=== PATIENT | male | born 1980 | race Caucasian/White ===

== ENCOUNTER → 2017-08-05 | Outpatient (REF) | payer OTHER ==
[2017-08-05 13:18] LABS: BASO # 0.1 10^3/uL (0.0-0.2); BASO % 0.6 % (0.0-1.0); EOS # 0.2 10^3/uL (0.0-0.50); EOS % 1.9 % (0.0-3.0); HEMATOCRIT 40.7 % (42.0-52.0); IMMATURE GRANULOCYTE # 0.1 10^3/uL (0-0); IMMATURE GRANULOCYTE % 0.6 % (0-3.0); LYMPH # 2.9 10^3/uL (1.5-4.5); LYMPH % 26.7 % (24.0-44.0); MEAN CORPUSCULAR HEMOGLOBIN 27.3 pg (27.0-33.0); MEAN CORPUSCULAR HGB CONC 31.9 g/dl (32.0-36.5); MEAN CORPUSCULAR VOLUME 85.5 fl (80.0-96.0); MONO # 0.7 10^3/uL (0.0-0.8); MONO % 6.3 % (0.0-5.0); NEUTROPHILS % 63.9 % (36.0-66.0); PLATELET COUNT, AUTOMATED 303 10^3/uL (150-450); RED BLOOD COUNT 4.76 10^6/uL (4.30-6.10); RED CELL DISTRIBUTION WIDTH 14.1 % (11.5-14.5); WHITE BLOOD COUNT 10.9 10^3/uL (4.0-10.0)
[2017-08-05 13:19] LABS: ESTIMATED AVERAGE GLUCOSE 206 MG/DL (60-110); HEMOGLOBIN A1c 8.8 %
[2017-08-05 13:24] LABS: CPK CREATINE PHOSPHOKINASE 61 U/L (39-308)
[2017-08-05 13:26] LABS: ALBUMIN 3.3 GM/DL (3.2-5.2); ALBUMIN/GLOBULIN RATIO 1.03 (1.00-1.93); ALKALINE PHOSPHATASE 57 U/L (45-117); ALT/SGPT 116 U/L (12-78); ANION GAP 10 MEQ/L (8-16); AST/SGOT 64 U/L (7-37); BILIRUBIN,TOTAL 0.5 MG/DL (0.2-1.0); BLOOD UREA NITROGEN 12 MG/DL (7-18); CARBON DIOXIDE LEVEL 28 MEQ/L (21-32); CHLORIDE LEVEL 102 MEQ/L (98-107); CHOLESTEROL LEVEL 143 MG/DL (<200); CHOLESTEROL RISK RATIO 3.864 (<5); GLOMERULAR FILTRATION RATE > 60.0 (>60); GLUCOSE, FASTING 165 MG/DL (70-100); HDL CHOLESTEROL 37 MG/DL (>40); LDL CHOLESTEROL 61.8 MG/DL (<100); NON-HDL-C 106 MG/DL; POTASSIUM SERUM 4.1 MEQ/L (3.5-5.1); SODIUM LEVEL 140 MEQ/L (136-145); TOTAL PROTEIN 6.5 GM/DL (6.4-8.2); TRIGLYCERIDES LEVEL 221 MG/DL (<150)
== END ==
LOC: M LABDRWAD 12:32
DX: E11.65 Type 2 diabetes mellitus with hyperglycemia (principal); E66.01 Morbid (severe) obesity due to excess calories; I10 Essential (primary) hypertension

== ENCOUNTER → 2018-09-23 | Outpatient (REF) | payer OTHER ==
[2018-09-23 13:23] LABS: ALBUMIN 3.9 GM/DL (3.2-5.2); ALT/SGPT 172 U/L (12-78); BILIRUBIN,DIRECT 0.2 MG/DL (0.0-0.2); BILIRUBIN,TOTAL 0.6 MG/DL (0.2-1.0); TOTAL PROTEIN 7.7 GM/DL (6.4-8.2)
[2018-09-23 13:42] LABS: HEPATITIS B SURFACE ANTIGEN NEGATIVE (NEGATIVE)
[2018-09-23 14:08] LABS: HEPATITIS C VIRUS ABY INDEX 0.1 INDEX (<0.8)
[2018-09-23 14:09] LABS: HEPATITIS B CORE ANTIBODY IGM NEGATIVE (NEGATIVE)
[2018-09-23 14:12] LABS: HEPATITIS A ANTIBODY IGM NEGATIVE (NEGATIVE)
== END ==
LOC: M LABDRWAD 12:18
PROVIDERS: ATTEND Nurse Practitioner Family
DX: R74.8 Abnormal levels of other serum enzymes (principal)

== ENCOUNTER → 2018-11-25 | Outpatient (CLI) | payer OTHER ==
--- NOTE | 2018-11-25 14:55 | REP ---
Bilateral lower extremity arterial duplex ultrasound: Right lower extremity: Brachial peak systole: 130 mmHg. Dorsalis pedis peak systole: 128 mmHg. DEPARTMENTAL SECRETARY peak systole: 142 mmHg. HERNESTO: 1.09 Peak Systolic Phasicity Velocity [employer] the 103 triphasic Profunda 71.3 triphasic SFA prox 89.4 triphasic SFA mid 76.4 triphasic SFA dist 57.2 triphasic Pop 48.5 triphasic DIEGO prox 42.9 triphasic Tib/P tr 65.9 triphasic DEPARTMENTAL SECRETARY pr 80.1 triphasic DEPARTMENTAL SECRETARY dst 52.2 triphasic DIEGO dst 70.8 triphasic Left lower extremity: Brachial peak systole: 130 mmHg. Dorsalis pedis peak systole: 120 mmHg. DEPARTMENTAL SECRETARY peak systole: 138 mmHg. HERNESTO: 106. 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 There are triphasic waveforms bilaterally. No stenoses are identified on the right or the left. Electronically Signed by Guilherme Mack MD 11/25/2018 02:46 P
== END ==
LOC: M RAD 12:10
PROVIDERS: ATTEND Podiatrist Foot & Ankle Surgery
DX: I73.9 Peripheral vascular disease, unspecified (principal)

== ENCOUNTER → 2019-03-03 | Outpatient (REF) | payer OTHER ==
[2019-03-03 13:18] LABS: BASO # 0.1 10^3/uL (0.0-0.2); BASO % 0.9 % (0.0-1.0); EOS # 0.1 10^3/uL (0.0-0.5); EOS % 1.1 % (0.0-3.0); HEMATOCRIT 46.7 % (42.0-52.0); HEMOGLOBIN 14.5 g/dl (13.5-17.5); LYMPH # 2.9 10^3/uL (1.5-5.0); LYMPH % 28.6 % (24.0-44.0); MEAN CORPUSCULAR HEMOGLOBIN 26.4 pg (27.0-33.0); MEAN CORPUSCULAR VOLUME 85.1 fl (80.0-96.0); MONO # 0.9 10^3/uL (0.0-0.8); MONO % 8.4 % (0.0-5.0); NEUTROPHILS # 6.2 10^3/uL (1.5-8.5); NEUTROPHILS % 60.2 % (36.0-66.0); PLATELET COUNT, AUTOMATED 363 10^3/uL (150-450); RED BLOOD COUNT 5.49 10^6/uL (4.30-6.10); WHITE BLOOD COUNT 10.3 10^3/uL (4.0-10.0)
[2019-03-03 13:47] LABS: ALBUMIN 3.8 GM/DL (3.2-5.2); ALT/SGPT 84 U/L (12-78); BILIRUBIN,TOTAL 0.4 MG/DL (0.2-1.0); BLOOD UREA NITROGEN 18 MG/DL (7-18); CALCIUM LEVEL 9.5 MG/DL (8.5-10.1); CARBON DIOXIDE LEVEL 31 MEQ/L (21-32); CHLORIDE LEVEL 98 MEQ/L (98-107); CHOLESTEROL LEVEL 211 MG/DL (<200); CHOLESTEROL RISK RATIO 6.393 (<5); CREATININE FOR GFR 0.96 MG/DL (0.70-1.30); GLOMERULAR FILTRATION RATE > 60.0 (>60); GLUCOSE, FASTING 267 MG/DL (70-100); HDL CHOLESTEROL 33 MG/DL (>40); NON-HDL-C 178 MG/DL; POTASSIUM SERUM 3.7 MEQ/L (3.5-5.1); SODIUM LEVEL 139 MEQ/L (136-145); TOTAL PROTEIN 7.6 GM/DL (6.4-8.2); TRIGLYCERIDES LEVEL 415 MG/DL (<150)
== END ==
LOC: M LABDRWAD 12:36
PROVIDERS: ATTEND Nurse Practitioner Family
DX: E11.65 Type 2 diabetes mellitus with hyperglycemia (principal); K76.0 Fatty (change of) liver, not elsewhere classified; I51.7 Cardiomegaly; R74.8 Abnormal levels of other serum enzymes

== ENCOUNTER → 2019-03-03 | Outpatient (REF) | payer OTHER ==
[2019-03-03 13:49] LABS: HEMOGLOBIN A1c 8.8 %
[2019-03-05 00:07] LABS: CK 1 (BB) 0 % (0); CK 2 (MB) 0 % (0-3); CK 3 (MM) 100 % (97-100); CK MACRO I PERCENT 0 % (Not Observed); CK MACRO II PERCENT 0 % (Not Observed); CK TOTAL 60 U/L (24-204)
== END ==
LOC: M LABDRWAD 12:38
PROVIDERS: ATTEND Physician Assistant Medical
DX: R94.31 Abnormal electrocardiogram [ECG] [EKG] (principal); E11.69 Type 2 diabetes mellitus with other specified complication; R07.9 Chest pain, unspecified; R74.8 Abnormal levels of other serum enzymes; I10 Essential (primary) hypertension; E78.2 Mixed hyperlipidemia; E66.01 Morbid (severe) obesity due to excess calories

== ENCOUNTER → 2019-08-18 | Outpatient (REF) | payer OTHER ==
[2019-08-18 13:19] LABS: BASO # 0.1 10^3/uL (0.0-0.2); BASO % 0.6 % (0.0-1.0); EOS # 0.2 10^3/uL (0.0-0.5); EOS % 1.3 % (0.0-3.0); HEMATOCRIT 48.2 % (42.0-52.0); HEMOGLOBIN 15.3 g/dl (13.5-17.5); LYMPH # 3.5 10^3/uL (1.5-5.0); LYMPH % 29.5 % (24.0-44.0); MEAN CORPUSCULAR HEMOGLOBIN 26.9 pg (27.0-33.0); MEAN CORPUSCULAR HGB CONC 31.7 g/dl (32.0-36.5); MEAN CORPUSCULAR VOLUME 84.9 fl (80.0-96.0); MONO % 8.5 % (0.0-5.0); NEUTROPHILS # 6.9 10^3/uL (1.5-8.5); NEUTROPHILS % 59.3 % (36.0-66.0); PLATELET COUNT, AUTOMATED 420 10^3/uL (150-450); RED BLOOD COUNT 5.68 10^6/uL (4.30-6.10); WHITE BLOOD COUNT 11.7 10^3/uL (4.0-10.0)
[2019-08-18 13:26] LABS: ALBUMIN 3.6 GM/DL (3.2-5.2); ALT/SGPT 88 U/L (12-78); BILIRUBIN,TOTAL 0.5 MG/DL (0.2-1.0); BLOOD UREA NITROGEN 12 MG/DL (7-18); CALCIUM LEVEL 9.5 MG/DL (8.5-10.1); CARBON DIOXIDE LEVEL 31 MEQ/L (21-32); CHLORIDE LEVEL 101 MEQ/L (98-107); CHOLESTEROL LEVEL 148 MG/DL (<200); CHOLESTEROL RISK RATIO 4.774 (<5); CREATININE FOR GFR 0.93 MG/DL (0.70-1.30); GLOMERULAR FILTRATION RATE > 60.0 (>60); GLUCOSE, FASTING 256 MG/DL (70-100); HDL CHOLESTEROL 31 MG/DL (>40); LDL CHOLESTEROL 56 MG/DL (<100); NON-HDL-C 117 MG/DL; POTASSIUM SERUM 4.2 MEQ/L (3.5-5.1); SODIUM LEVEL 139 MEQ/L (136-145); TOTAL PROTEIN 7.4 GM/DL (6.4-8.2); TRIGLYCERIDES LEVEL 307 MG/DL (<150)
== END ==
LOC: M LABDRWAD 12:16
PROVIDERS: ATTEND Nurse Practitioner Family
DX: E11.65 Type 2 diabetes mellitus with hyperglycemia (principal); I10 Essential (primary) hypertension; E78.2 Mixed hyperlipidemia

== ENCOUNTER 2020-01-25 14:19 | Emergency (ER) | payer OTHER ==
[~2020-01-25] VITALS: Ht 203.2 cm; Wt 205.4 kg
[2020-01-25] MEDS ORDERED: LANS15CA PO (14:54)
[2020-01-25] MEDS ORDERED: ATOR1TAB21 PO (14:54)
[2020-01-25] MEDS ORDERED: FENO160T10 PO (14:54)
[2020-01-25] MEDS ORDERED: [UNRECOGNIZED DRUG - OTHER] SQ (14:54)
[2020-01-25] MEDS ORDERED: METO1TAB7 PO (14:54)
[2020-01-25] MEDS ORDERED: vitamin d3 PO (14:54)
[2020-01-25] MEDS ORDERED: CHLO25TA PO (14:54)
--- NOTE | 2020-01-25 15:09 | REP ---
INDICATION: CHEST PAIN. COMPARISON: Comparison chest x-ray January 31, 2014.. TECHNIQUE: Sitting AP portable chest x-ray. FINDINGS: A monitoring electrodes are seen. There is a large opacity in the right hemithorax adjacent to the right heart border consistent with a large pericardial cyst or epicardial fat pad. This is more prominent than on the January 31, 2014 study. Pulmonary vasculature is not increased. No definite infiltrate is seen. Heart is not felt to be enlarged. There is an old healed fracture of the left clavicle. IMPRESSION: Large opacity right base most likely epicardial fat pad versus pericardial cyst. This is more prominent than on the 2013 prior study. Otherwise no active disease. Consider chest CT. <Electronically signed by Hernan Serra > 01/25/20 [id number]
[2020-01-25 15:12] LABS: BASO # 0.1 10^3/uL (0.0-0.2); BASO % 0.5 % (0.0-1.0); EOS # 0.1 10^3/uL (0.0-0.5); EOS % 0.9 % (0.0-3.0); HEMATOCRIT 44.1 % (42.0-52.0); HEMOGLOBIN 13.9 g/dl (13.5-17.5); LYMPH # 3.3 10^3/uL (1.5-5.0); LYMPH % 23.7 % (24.0-44.0); MEAN CORPUSCULAR HEMOGLOBIN 25.7 pg (27.0-33.0); MEAN CORPUSCULAR HGB CONC 31.5 g/dl (32.0-36.5); MEAN CORPUSCULAR VOLUME 81.5 fl (80.0-96.0); MONO % 7.5 % (0.0-5.0); NEUTROPHILS # 9.3 10^3/uL (1.5-8.5); PLATELET COUNT, AUTOMATED 388 10^3/uL (150-450); RED BLOOD COUNT 5.41 10^6/uL (4.30-6.10); WHITE BLOOD COUNT 13.8 10^3/uL (4.0-10.0)
--- NOTE | 2020-01-25 15:38 | REP ---
INDICATION: dizziness. COMPARISON: Comparison head CT study May 10, 2005.. TECHNIQUE: Helical scanning is acquired. 5 mm axial images were reformatted. Coronal MPR images were generated. FINDINGS: Bone window settings demonstrate an intact bony calvarium. There is no evidence of skull fracture or incidental bony calvarial lesion. The visualized paranasal sinuses appear clear. No intraorbital abnormality is seen. On soft tissue window setting images; the lateral, third, and fourth ventricles are normal in size and position. Barrientos-white differentiation pattern is normal above and below the tentorium. There are is no evidence of intracranial hemorrhage. No mass, edema, infarction, or midline shift is seen. No extra-axial fluid collection is appreciated. IMPRESSION: Negative noncontrast head CT. <Electronically signed by Hernan Serra > 01/25/20 1539
[2020-01-25 16:17] LABS: ALBUMIN 3.4 GM/DL (3.2-5.2); ALT/SGPT 41 U/L (12-78); BILIRUBIN,DIRECT < 0.1 MG/DL (0.0-0.2); BILIRUBIN,TOTAL 0.4 MG/DL (0.2-1.0); BLOOD UREA NITROGEN 19 MG/DL (7-18); CALCIUM LEVEL 9.2 MG/DL (8.5-10.1); CARBON DIOXIDE LEVEL 25 MEQ/L (21-32); CHLORIDE LEVEL 102 MEQ/L (98-107); CK-MB VALUE MASS 1.1 NG/ML (<3.6); CPK CREATINE PHOSPHOKINASE 126 U/L (39-308); CREATININE FOR GFR 1.17 MG/DL (0.70-1.30); GLOMERULAR FILTRATION RATE > 60.0 (>60); GLUCOSE, FASTING 225 MG/DL (70-100); LIPASE 110 U/L (73-393); MB/CK RELATIVE INDEX 0.87 (< OR =4); POTASSIUM SERUM 3.9 MEQ/L (3.5-5.1); SODIUM LEVEL 134 MEQ/L (136-145); TOTAL PROTEIN 7.6 GM/DL (6.4-8.2); TROPONIN I < 0.02 NG/ML (< 0.10)
[2020-01-25] MEDS ORDERED: ISOVUE-370 76% 100ML VIAL As Ordered ONE (16:30)
--- NOTE | 2020-01-25 17:09 | ECGEPIP ---
[facility] - ED Test Date: 2020-01-25 Pat Name: PATRICK FU Department: Room: - Gender: Male [employer]ler [employer]: : 1980 Requested By: ROSE Singh Order Number: [id number] Reading MD: Kala Chambers Measurements Intervals [place] Rate: 102 P: 52 IN: 179 QRS: 56 QRSD: 83 T: 27 QT: 328 QTc: 428 Interpretive Statements SINUS TACHYCARDIA LOW QRS VOLTAGE IN PRECORDIAL LEADS NSTTW abnormalities ABNORMAL RHYTHM ECG PRWP NO PRIOR Electronically Signed on 01-25-2020 17:09:52 EST by Kala Chambers
--- NOTE | 2020-01-25 17:11 | REP ---
INDICATION: chest pain; further evaluate XR findings; r/o PE. COMPARISON: None. TECHNIQUE: Contrast dose: 75 ML of Isovue [address] technique: Helical scanning is acquired and overlapping 1.5 mm and contiguous 3 mm axial images are reformatted. In addition, maximum intensity projection and multiplanar re-formation images are generated in sagittal and coronal imaging projections. FINDINGS: There is good opacification in the pulmonary arterial tree. There is no evidence of vessel cut off or filling defect to suggest pulmonary embolus. Homogeneous opacity is seen in the thoracic aorta. There is no evidence of aneurysm or dissection. Lung window settings demonstrate there is a large amount of omental fat in the right cardio-phrenic angle extending into the right chest through a large Morgagni diaphragmatic hernia located in the anterior central and right paracentral chest. Size of the defect is 6.3 cm in right to left dimension by 4.4 cm anterior to posterior. The herniated omental fatty tissue in the right chest measures approximately 22 cm right to left by 12.8 cm anterior to posterior by 15 cm cranial to caudal. There is slight displacement of the heart to the left. No hilar or mediastinal mass or adenopathy is observed. No pleural or pericardial effusion is seen. There is a moderate discoid atelectasis in the right middle lobe and anterior segment of the right upper lobe. There is compression of the right middle lobe associated with the fatty tissue in the chest. No pulmonary mass or nodule is seen. No evidence of acute infiltrate. In the upper abdomen, the gallbladder is small and contracted. Normal adrenal glands are seen. No hepatic or splenic lesion is seen. The visualized upper abdominal structures are otherwise unremarkable. IMPRESSION: No CT evidence of pulmonary embolus. 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 There is some mild compression of the heart and shift of the heart to the left and there is compressive atelectasis in the right middle lobe of the lung. <Electronically signed by Hernan Serra > 01/25/20 [id number]
[2020-01-25] MEDS ORDERED: FLON1SPR NARES (17:41)
[2020-01-25 18:29] VITALS: BP 141/78
--- NOTE | 2020-01-26 12:05 | ED PDOC ---
Post-Departure Follow-Up james maza faxed formal report of cta chest for fu Jimenez Gómez MD Jan 26, 2020 12:04
== END 2020-01-25 18:38 | disposition home or self-care (01) ==
LOC: EDBD 14:19 → M ED 14:19
DX: R07.89 Other chest pain (principal); H65.03 Acute serous otitis media, bilateral; K44.9 Diaphragmatic hernia without obstruction or gangrene; J98.11 Atelectasis; R42 Dizziness and giddiness; R00.0 Tachycardia, unspecified; E11.9 Type 2 diabetes mellitus without complications; I51.7 Cardiomegaly; F90.9 Attention-deficit hyperactivity disorder, unspecified type; F31.9 Bipolar disorder, unspecified; Z88.0 Allergy status to penicillin; Z79.899 Other long term (current) drug therapy
CPT/HCPCS: 36415; 70450; 71045; 71275; 80048; 80076; 82550; 82553; 83690; 84443; 85025; 93005; 93041; 94760; 99285; Q9967

== ENCOUNTER → 2021-03-07 | Outpatient (REF) ==
[~2021-03-07] MED LIST: ATOR1TAB21 PO; CHLO25TA PO; FENO160T10 PO; FLON1SPR NARES; LANS15CA PO; METO1TAB7 PO; [UNRECOGNIZED DRUG - OTHER] SQ; vitamin d3 PO
== END ==
LOC: M LABSMTC 09:22
PROVIDERS: ATTEND Pediatrics
DX: Z11.52 Encounter for screening for COVID-19 (principal)

== ENCOUNTER → 2021-03-14 | Outpatient (REF) | payer OTHER ==
[2021-03-14 15:22] LABS: CREATININE, URINE 78.1 MG/DL; MALB URINE SIEMENS 7.6 MG/L; MAU/CREAT RATIO 9.7 MCG/MG (0.0-30.0)
== END ==
LOC: M LAB REF 12:17
PROVIDERS: ATTEND Nurse Practitioner Family
DX: E11.65 Type 2 diabetes mellitus with hyperglycemia (principal)

== ENCOUNTER → 2022-06-18 | Outpatient (REF) | payer OTHER ==
[~2022-06-18] MED LIST changes: +BASA100I INJ; +BUPR150T12 PO; +BUPR300T92 PO; +DULA4.5P INJ; +STEG15TA PO
[2022-06-18 18:14] LABS: MALB URINE SIEMENS < 3.0 MG/L
[2022-06-18 18:15] LABS: CREATININE, URINE 64.2 MG/DL; MAU/CREAT RATIO 4.6 MCG/MG (0.0-30.0)
== END ==
LOC: M LAB REF 17:05
PROVIDERS: ATTEND Nurse Practitioner Family
DX: E11.65 Type 2 diabetes mellitus with hyperglycemia (principal)

== ENCOUNTER → 2023-05-15 | Outpatient (REF) | payer OTHER ==
[2023-05-16 15:52] LABS: MALB URINE SIEMENS < 3.0 MG/L; MAU/CREAT RATIO 4.4 MCG/MG (0.0-30.0)
== END ==
LOC: M LAB REF 15:16
PROVIDERS: ATTEND Nurse Practitioner Family
DX: E11.65 Type 2 diabetes mellitus with hyperglycemia (principal)

== ENCOUNTER → 2024-04-06 | Outpatient (CLI) | payer OTHER ==
[~2024-04-06] MED LIST changes: +BUPR-597 PO; -BUPR300T92 PO
== END ==
LOC: M RAD 14:30
PROVIDERS: ATTEND Nurse Practitioner Family
DX: R42 Dizziness and giddiness (principal)

== ENCOUNTER 2024-11-21 12:24 | Emergency (ER) | payer OTHER ==
[~2024-11-21 12:24] MED LIST changes: -BUPR-597 PO; +BUPR-766 PO
[2024-11-21 14:28] LABS: BASO # 0.1 10^3/uL (0.0-0.2); BASO % 0.6 % (0.0-1.0); EOS # 0.2 10^3/uL (0.0-0.5); EOS % 2.0 % (0.0-3.0); LYMPH # 2.2 10^3/uL (1.5-5.0); LYMPH % 18.6 % (24.0-44.0); MONO # 0.8 10^3/uL (0.0-0.8); MONO % 6.6 % (2.0-8.0); NEUTROPHILS # 8.6 10^3/uL (1.5-8.5); NEUTROPHILS % 71.5 % (36.0-66.0); PLATELET COUNT, AUTOMATED 378 10^3/uL (150-450)
[2024-11-21 14:32] LABS: ERYTHROCYTE SEDIMENTATION RATE 59 mm/hr (0-15)
[2024-11-21 15:00] LABS: C REACTIVE PROTEIN QUANTITATIV 1.75 MG/DL (<1.0); CALCIUM LEVEL 10.0 MG/DL (8.5-10.1); CARBON DIOXIDE LEVEL 26 MMOL/L (20-31); CHLORIDE LEVEL 101 MMOL/L (98-107); CREATININE FOR GFR 0.94 MG/DL (0.70-1.30); GLOMERULAR FILTRATION RATE > 90.0 (>60); POTASSIUM SERUM 4.3 MMOL/L (3.5-5.1); SODIUM LEVEL 138 MMOL/L (136-145)
[2024-11-21] MEDS ORDERED: DOXY-441 PO (15:50)
[2024-11-21 15:57] VITALS: BP 140/67; TEMP 98; O2SAT 96
== END 2024-11-21 16:01 | disposition home or self-care (01) ==
LOC: M ED 12:24
DX: L03.116 Cellulitis of left lower limb (principal); E11.9 Type 2 diabetes mellitus without complications; I10 Essential (primary) hypertension; E78.5 Hyperlipidemia, unspecified; Z88.0 Allergy status to penicillin; Z79.2 Long term (current) use of antibiotics; Z79.02 Long term (current) use of antithrombotics/antiplatelets; Z79.4 Long term (current) use of insulin; Z79.899 Other long term (current) drug therapy